=== PATIENT | male | born 1950 | race Caucasian/White ===

== ENCOUNTER 2017-06-14 13:41 | Day surgery (SDC) | payer BC, OTHER ==
[~2017-06-14] VITALS: Ht 172.7 cm; Wt 65.4 kg
[~2017-06-14 13:41] MED LIST: ALEVE220 MG PO; BIAXIN500 MG PO; BISAC-EVAC10 MG PR; EVOXAC30 MG PO; FENTANYL1 EAC5 TD; FLONASE ALLERG9.9 ML BOTH NARES; GLUCOPHAGE500 MG PO; METFORMIN HCL500 M1 GT; METFORMIN HCL500 MG GT; NASONEX17 GM BOTH NARES; OXYCODONE H5 MG/5 ML PO; PREVACID SOLUTA30 MG GT; PRILOSEC20 MG PO
[2017-06-14 14:17] VITALS: BP 111/75
[2017-06-14 17:10] VITALS: BP 166/78
[2017-06-14 18:08] VITALS: BP 173/85
[2017-06-14 18:10] VITALS: BP 150/80
== END 2017-06-14 18:18 | disposition home or self-care (01) ==
LOC: SDC 13:41
PROVIDERS: Surgery
PROC: 0DH63UZ Insertion of Feeding Device into Stomach, Percutaneous Approach (ICD-10-PCS; principal; 2017-06-14)
DX: R13.10 Dysphagia, unspecified (principal); K21.0 Gastro-esophageal reflux disease with esophagitis; E11.9 Type 2 diabetes mellitus without complications; C76.0 Malignant neoplasm of head, face and neck; Z85.828 Personal history of other malignant neoplasm of skin; Z79.891 Long term (current) use of opiate analgesic; Z79.84 Long term (current) use of oral hypoglycemic drugs
CPT/HCPCS: 82948; 93005; J0690